=== PATIENT | female | born 1985 | race Caucasian/White ===

== ENCOUNTER 2022-06-02 12:39 | Emergency (ER) | payer BC, SELFPAY ==
--- NOTE | ~2022-06-02 | XR_ITS ---
EXAMINATION: XR foot LT min 3V DATE: 06/02/2022 13:02 INDICATION: Left foot pain. TECHNIQUE: 4 views of left foot were obtained. COMPARISON: None. FINDINGS: Bone alignment is normal. There is an oblique fracture of distal diaphysis of fifth metatar lexi in near-anatomic alignment. There is mild osteoarthritis of first metatarsophalangeal joint. IMPRESSION: 1. Oblique fracture of distal diaphysis of fifth metatarsal. Reviewed, dictated and finalized at location A. OGEOLOGIST
--- NOTE | 2022-06-02 12:41 | ED.EXTPRO ---
HPI - Extremity Problem General Stated complaint: lt foot pain Time Seen by Provider: 06/02/22 12:41 Source: patient Mode of arrival: ambulatory Limitations: no limitations History of Present Illness HPI Narrative: Ms. Hurt is a 37-year-old female patient presenting to clinic today with complaints of left foot pain times 1-2 days. She reports she was wearing new shoes and possibly sprained her left foot. She has pain over the pinky toe and lateral foot Related Data Allergies Allergy/AdvReac Type Severity Reaction Status Date / Time No Known Allergies Allergy Verified 06/02/22 12:55 Review of Systems Review of Systems: Pertinent positives per HPI. Patient denies any fever, chills, rash, headache, visual changes, dizziness, cough, runny nose, sore throat, shortness of breath, chest pain, palpitations, nausea, vomiting, diarrhea, constipation, abdominal pain, or any urinary issues. PMFSH Past Medical History Medical History Acute bacterial sinusitis Anxiety disorder, unspecified BMI 37.0-37.9, adult COVID-19 Dietary counseling and surveillance (09/26/15) Dysfunction of right eustachian tube Encounter for screening for lipoid disorders Tinea versicolor Family History Family History Mother Depression Asthma Not currently working due to disabled status Grandparent Family history of lung cancer Father No problems noted. Sibling Depression Other Hypertension Social History Social History Smoking status: Never smoker Second hand tobacco smoke exposure: Yes Alcohol intake: current Substance use: never Substance use type: does not use Additional occupation/education comments: real estate Gender identity (if verbalized by the patient): Female Comments At the time of my signature, I reviewed and agree with the nursing past medical, surgical, social, and family history. There is no relevant family history pertinent to the patient complaint. Exam Narrative: General: Well-developed, well nourished, in no apparent distress Head: Normocephalic, atraumatic. Cardio: Regular rate and rhythm, s1 and s2 normal, no murmur appreciated. Resp: Clear to auscultation bilaterally, no rhonchi, rales, wheezing or rubs. Musculoskeletal: No deformity, tender to palpation over the distal left 5th metatarsal and left phalanx, grossly normal range of motion, muscle strength strong and equal, peripheral pulse strong, no edema, no cyanosis, normal gait and station Course Course Emergency Course: Portions of this record may have been created with voice recognition software. Level of Care: [facility] Visit Vital Signs Vital signs: Vital signs reviewed MDM - Extremity (Nontraumatic) MDM Narrative Medical decision making narrative: At the time of visit patient is resting comfortably on the exam table. X-ray was performed and shows a nondisplaced fracture of the 5th metatarsal. Postop shoe was applied and or the referral was given to patient. Supportive measures were discussed with the patient she voiced understanding of discharge instructions and agrees to treatment plan Differential Diagnosis Differential diagnosis: Likely other (Foot fracture, foot strain, metatarsal fracture, metatarsal sprain) Imaging Data Radiologist's impression: [place] [id number] XRay Report Signed Patient: Tonya Hurt : 1985 MR#: [id number] Age/Sex: 37 / F Acct:[id number] Loc: [facility]? ? ADM Date: 06/02/22Attending Dr: Ordering Physician: Mauro Hidalgo APRN Date of Service: 06/02/22 Procedure(s): XR foot LT min 3V Accession Number(s): [id number] cc: Mauro Hidalgo APRN; Ash Powell MD~ EXAMINATION: XR foot LT min 3V
[2022-06-02 12:55] VITALS: BP 150/108; PULSE 96; RESP 18; TEMP 36.5; O2SAT 98
== END 2022-06-02 13:21 | disposition home or self-care (01) ==
PROVIDERS: Emergency Provider Nurse Practitioner Family; PCP Family Medicine
DX: S92.352A Displaced fracture of fifth metatarsal bone, left foot, initial encounter for closed fracture (principal); X58.XXXA Exposure to other specified factors, initial encounter; F41.9 Anxiety disorder, unspecified; Z86.16 Personal history of COVID-19
CPT/HCPCS: 73630; 99214; G0463

== ENCOUNTER 2022-07-30 17:36 | Outpatient (NON) | payer BC, SELFPAY | END 2022-07-30 17:37 | disposition home or self-care (01) | LOC: ANHLAB 17:38 | PROVIDERS: PCP Family Medicine; Visit Provider Nurse Practitioner | DX: D22.5 Melanocytic nevi of trunk (principal) | CPT/HCPCS: 88305 ==

== ENCOUNTER 2024-03-17 09:15 | Outpatient (CLI) | payer BC, SELFPAY ==
--- NOTE | ~2024-03-17 | XR_ITS ---
Right wrist Technique: PA, oblique, lateral, and ulnar deviation views were obtained. Clinical History: Pain Findings: No acute fracture or dislocation is seen. Osseous alignment is anatomic. Joint spaces are p reserved. Soft tissues are unremarkable. Impression: Unremarkable right wrist radiographs. Reviewed, dictated and finalized at location . Impression: Unremarkable right wrist radiographs.
--- NOTE | ~2024-03-17 | XR_ITS ---
Left wrist Technique: PA, oblique, lateral, and ulnar deviation views were obtained. Clinical History: Pain Findings: No acute fracture or dislocation is seen. Osseous alignment is anatomic. Joint spaces are p reserved. Soft tissues are unremarkable. Impression: Unremarkable left wrist radiographs. Reviewed, dictated and finalized at location . Impression: Unremarkable left wrist radiographs.
== END 2024-03-17 09:16 ==
PROVIDERS: PCP Family Medicine
DX: M25.531 Pain in right wrist (principal); M25.532 Pain in left wrist
CPT/HCPCS: 73110

== ENCOUNTER 2024-06-26 08:00 | Emergency (ER) | payer BC, SELFPAY ==
[2024-06-26 08:07] VITALS: BP 144/73; PULSE 98; RESP 16; TEMP 36.5; O2SAT 99
[2024-06-26 08:12] VITALS: BP 144/73; PULSE 98; RESP 16; TEMP 36.5; O2SAT 99
[2024-06-26 08:25] LABS: EDSTREPNEGPOS1 Positive (Negative)
--- NOTE | 2024-06-26 08:27 | ED.URI ---
HPI - URI/Sore Throat General Chief Complaint: Upper Respiratory Infection Stated Complaint: sore throat Time Seen by Provider: 06/26/24 08:16 Source: patient and RN notes reviewed Mode of arrival: ambulatory Limitations: no limitations History of Present Illness HPI Narrative: Patient presents today complaining of 4 day history of sore throat and nasal congestion. Denies fever, cough, or any additional symptoms. She has been taking Tylenol and ibuprofen without relief and currently rates her pain 4/10. Denies any known sick contacts. History of tonsillectomy and adenoidectomy. Related Data Home Medications Medication Instructions Recorded Confirmed No Home Medications 06/26/24 06/26/24 Allergies Allergy/AdvReac Type Severity Reaction Status Date / Time No Known Allergies Allergy Verified 06/26/24 08:11 Review of Systems Review of Systems: CONSTITUTIONAL: Denies body aches, fever, chills, or sweats. EYES: Denies visual changes, redness, or discharge. ENT: Denies rhinorrhea, or otalgia.+ sore throat, congestion CARDIOVASCULAR: Denies chest pain, palpitations, or edema. RESPIRATORY: Denies cough or dyspnea. GASTROINTESTINAL: Denies abdominal pain, nausea, vomiting, or diarrhea. GENITOURINARY: Denies dysuria or hematuria. SKIN: Denies rash, itching, or wounds. MUSCULOSKELETAL: Denies back pain, joint pain, or myalgia. NEUROLOGIC: Denies headache, numbness, tingling, or weakness. PSYCH: Denies depression or anxiety. [facility] Past Medical History Medical History Acute bacterial sinusitis Anxiety disorder, unspecified BMI 34.0-34.9,adult BMI 37.0-37.9, adult COVID-19 Dietary counseling and surveillance (09/26/15) Dysfunction of right eustachian tube Encounter for screening for lipoid disorders Tinea versicolor Surgical History Surgical History History of tonsillectomy and adenoidectomy Hx of section Family History Family History Mother Depression Asthma Not currently working due to disabled status Grandparent Family history of lung cancer Father No problems noted. Sibling Depression Other Hypertension Social History Social History Smoking status: Never smoker Second hand tobacco smoke exposure: Yes Alcohol intake: current Substance use: never Substance use type: does not use Do You Feel Safe in your Home?: Yes Lack of Transportation: No Lack of Food: Never True Current Housing: I Have Housing Concerned About Future Housing: No Difficulty Paying Gas/Electric Bills: No Difficulty Paying for Meds: No Currently Unemployed: No Education: Associate Degree Difficulty w/ Childcare or Family Care: No Living arrangements: with family Occupation/Education: occupation 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 Please see nursing chart for further information. There is no relevant family history pertinent to the presenting complaint Exam Narrative: GENERAL: Well-appearing, well-nourished, and in no acute distress. HEAD: Normocephalic, atraumatic. EYES: EOMI. No redness or drainage. Conjunctivae normal. ENT: Mucous membranes pink and moist. Nares mildly congested. No rhinorrhea. TMs normal bilaterally. Throat normal. Uvula midline. Voice mildly hoarse, but improves when speaking. NECK: Normal AROM. Supple. No lymphadenopathy. CHEST: No respiratory distress. Clear to auscultation. HEART: Regular rate and rhythm. No murmur appreciated. EXTREMITIES: Normal range of motion. No edema. SKIN: Warm, dry, no rash. Capillary refill normal. Normal skin turgor. NEURO: No focal deficits. Alert and oriented x3. Gait steady. PSYCH: Normal affect. No signs of depression or anxiety. Course Course Level of Care: Express Care Visit Vital Signs Vital signs: Vital Signs Temperature 97.7 F 06/26/24 08:07 Pulse Rate 98 06/26/24 08:07 Respiratory Rate 16 06/26/24 08:07 Blood Pressure 144/73 H 06/26/24 08:07 Pulse Oximetry 99 06/26/24 08:07 Oxygen Delivery Room Air 06/26/24 08:07 Temperature 97.7 F 06/26/24 08:12 Pulse Rate 98 06/26/24 08:12 Respiratory Rate 16 06/26/24 08:12 Blood Pressure 144/73 H 06/26/24 08:12 Pulse Oximetry 99 06/26/24 08:12 Oxygen Delivery Room Air 06/26/24 08:12 Reviewed MDM - URI/Sore Throat MDM Narrative Medical decision making narrative: Rapid strep negative. Culture pending. Patient declines testing for COVID or influenza. Symptoms likely viral in etiology. Discussed [id number] medication use and duration of illness. No prescription medications indicated at this time. Anticipatory guidance given. Differential Diagnosis Differential diagnosis: Likely upper respiratory infection, viral infection, pharyngitis and other (Strep throat) Lab Data Attestation: I reviewed the patient's lab results. Labs: Lab Results 06/26/24 Range/Units 08:24 POC Grp A Strep Screen Positive (Negative) Critical Care Time Critical Care Time Critical Care Time: No Discharge Plan Discharge Clinical Impression: Upper respiratory infection Qualifiers: URI type: unspecified URI Qualified Code(s): J06.9 - Acute upper respiratory infection, unspecified Patient Disposition: Home, Self-Care Condition: Stable Instructions: Pharyngitis (ED), Upper Respiratory Infection (DC) Additional Instructions: Your rapid strep swab was negative today at [facility]. You will be notified in a few days if the culture comes back positive for strep, and appropriate antibiotics will be called in for you at that time. Your symptoms are likely due to a viral illness, which is not treated with antibiotics. Viral symptoms can be present for up to 7-10 days. Take Tylenol ibuprofen for fever or pain. You also consider an antihistamine for your postnasal drainage such as Zyrtec, Claritin, or Lala. Rest and stay hydrated. Follow up with your PCP in 7 days if symptoms are not improving. Go to the ER immediately if you have any difficulty breathing or swallowing. Your blood pressure was elevated above 120/80 today at Urgent Care. This puts you above the threshold for follow up. Please schedule a followup visit with your personal physician as soon as possible, for further evaluation and treatment. Even blood pressure exceeding 120/80 may indicate pre-hypertension. Prescriptions: No Action No Home Medications Follow-up/Referrals: Ash Powell MD [Primary Care Provider] - Time of Disposition: 08:34
== END 2024-06-26 08:41 | disposition home or self-care (01) ==
PROVIDERS: Emergency Provider Nurse Practitioner; PCP Family Medicine
DX: J06.9 Acute upper respiratory infection, unspecified (principal); Z86.16 Personal history of COVID-19
CPT/HCPCS: 87081; 87880; 99213; G0463